=== PATIENT | female | born 1965 | race Caucasian/White ===

== ENCOUNTER 2023-05-31 15:33 | Emergency (ER) | payer BC, SELFPAY ==
[2023-05-31 15:34] VITALS: BP 159/72; PULSE 90; RESP 16; TEMP 36.3; O2SAT 96; BMI 41.7
--- NOTE | 2023-05-31 17:40 | EDS_ITS ---
HPI History of Present Illness Chief Complaint: Complaint Detail of Chief Complaint: Unable to void since 10 AM. Informant: patient Onset/Context/Timing Onset: Today Context: Sudden Onset Timing: Continuous Quality: Unable to void Location: Current Severity: Moderate Maximum Severity: Moderate Worsened by: Patient accidentally took double dose of her oxybutynin Relieved by: noThing and reason she presents Associated Symptoms Associated Symptoms: Sense of fullness in the suprapubic area Narrative Narrative: Patient is a 57-year-old woman who has problems with frequency and bladder issues. She was prescribed oxybutynin. Her dose was recently doubled. She inadvertently took a double dose this morning. She presents now because she is unable to void. She has no other complaints. Prior similar symptoms: No Recent Illness/Hospitalization: No PFSH PFSH Medical History Insomnia Home Medications acetaminophen 500 mg tablet 500 mg PO Q6H PRN PRN Pain ##30 04/28/16 [Rx Last Taken Unknown] ondansetron 4 mg disintegrating tablet 4 mg PO Q8H PRN PRN Nausea #10 tabs 04/28/16 [Rx Last Taken Unknown] trazodone 50 mg tablet 50 mg PO QHS 04/28/16 [History Last Taken Unknown] duloxetine 60 mg capsule,delayed release 60 mg PO DAILY 05/31/23 [History Last Taken Unknown] nortriptyline 50 mg capsule 50 mg PO DAILY 05/31/23 [History Last Taken Unknown] oxybutynin chloride 15 mg tablet,extended release 24 hr 15 mg PO DAILY 05/31/23 [History Last Taken Unknown] Allergy/AdvReac Type Severity Reaction Status Date / Time No Known Allergies Allergy Verified 05/31/23 15:34 Surgical History History of partial hysterectomy Hx of cholecystectomy Social History Smoking Status: Never smoker ROS ROS ED Constitutional Constitutional ED: Denies chills, fever(s), subjective or sweats Gastrointestinal Gastrointestinal: Reports abdominal pain; Denies nausea or vomiting Genitourinary Genitourinary ED: Reports other Details: Unable to urinate ; Denies dysuria, hematuria or urinary frequency Musculoskeletal Musculoskeletal: Denies back pain Hematologic/Lymphatic Hematologic/Lymphatic: Reports systems reviewed and no addt'l complaints, except as documented EXAM Physical Exam Const Vital Signs: 05/31/23 15:34 Temperature 97.4 F L Temperature Source Temporal Pulse Rate 90 Respiratory Rate 16 Blood Pressure 159/72 H Blood Pressure Mean 101 Pulse Ox 96 Positive well nourished, well developed and obese General Appearance ED: well developed and NAD; Negative for pallor Nutritional Appearance: obese HEENT Reports moist mucous membranes HEENT Narrative: Atraumatic and normocephalic. Eyes PERRL and EOMs intact bilaterally General Eye ED: Negative for pale conjunctiva or scleral icterus Resp normal respiratory effort Cardio regular rate and regular rhythm GI normal to inspection, nondistended, normoactive bowel sounds, non-tender and no masses; Negative for hepatosplenomegaly GI Narrative: Bladder is not large to percussion. We will have nurse perform bladder scan to determine how much urine is present. Palpation: soft Back/Spine no CVA tenderness Neuro oriented x3 and CN's II-XII intact bilaterally Sensorium / Orientation: alert Psych mental status grossly normal Skin no rashes or lesions noted, no wounds and No skin turgor normal General Skin Exam: Negative for jaundice or pallor MDM MDM MDM Narrative Medical decision making narrative: Documented under the diagnostic portion of the medical record Radiography Diagnostic Testing: Patient has urinary tension due to the fact that she doubled her dose of medication which was recently doubled. Will obtain bladder scan. If patient has more than 300 to 400 cc of urine we will have nurse place a [facility]. I was informed by nursing staff that she has 170 cc and she has voided. Therefore, jaret mays does not need a [facility] to be discharged home. Since difficulty was due to the fact that she accidentally took a double dose of her medication. Discharge Plan Triage Chief Complaint: Complaint ED Provider: Charles Kwan Dx/Rx/DC Orders Clinical Impression: Difficulty urinating, Adverse drug reaction Instructions: ED Screening Exam Medical Nonurgent Prescriptions: No Action trazodone 50 MG tablet 50 mg PO QHS acetaminophen 500 MG tablet 500 mg PO Q6H PRN PRN (Reason: Pain) Qty: 30 0RF ondansetron 4 MG tablet 4 mg PO Q8H PRN PRN (Reason: Nausea) Qty: 10 0RF duloxetine 60 mg capsule,delayed release(DR/EC) 60 mg PO DAILY Patient Comments: take 1 capsule by mouth once daily oxybutynin chloride 15 mg tablet extended release 24hr 15 mg PO DAILY Patient Comments: take 1 tablet by mouth once daily for 14 days nortriptyline 50 mg capsule 50 mg PO DAILY Primary Care Provider: Maria Luisa Box Referrals: Maria Luisa Box MD [Primary Care Provider] - As Needed Disposition Disposition: Home, Self Care Discharge Date/Time: 05/31/23 17:55
[2023-05-31 17:52] LABS: Mucous, Urine 0 SEEN /hpf (<or=2+); Red Blood Cells-Urine 0 SEEN /hpf (0-5); Squamous Epithelial Cells - UA 0 SEEN /hpf (5-10)
[2023-05-31 18:03] LABS: Color, Urine Yellow (Yellow); Glucose, Dipstick Normal (Normal); Ketone-Dipstick Negative (Negative); Leukocyte Esterase-Dipstick 500 /ul (Negative); Nitrite-Dipstick Positive (Negative); Occult Blood-Urine 250 /ul (Negative); Protein-Dipstick 15 mg/dl (Negative); Urine Bilirubin Dipstick Negative (Negative); Urine Clarity Clear (Clear); Urine Urobilinogen Normal (Normal)
[2023-05-31 18:27] LABS: Bacteria RARE /hpf (None Seen); White Blood Cells 0-5 SEEN /hpf (0-5)
== END 2023-05-31 17:55 | disposition home or self-care (01) ==
PROVIDERS: Emergency Provider Emergency Medicine; PCP Internal Medicine; Visit Provider Emergency Medicine
DX: R10.9 Unspecified abdominal pain (principal); T44.3X5A Adverse effect of other parasympatholytics [anticholinergics and antimuscarinics] and spasmolytics, initial encounter; E66.9 Obesity, unspecified; Z23 Encounter for immunization
CPT/HCPCS: 81001; 90471; 99284